=== PATIENT | female | born 1975 ===

== ENCOUNTER 2024-09-17 08:27 | Outpatient (REF) | payer SELFPAY ==
[2024-09-21 03:29] LABS: Quantiferon TB Gold Plus 1 NEGATIVE (NEGATIVE); TB Test (QFT) Mitogen -Nil >10.00 IU/mL; TB Test (QFT) Nil 0.03 IU/mL; TB Test (QFT) Plus TB1 -Nil 0.01 IU/mL
== END 2024-09-17 08:28 | disposition home or self-care (01) ==
LOC: HO.LAB 08:27
PROVIDERS: PCP Internal Medicine; Visit Provider Internal Medicine
DX: Z11.9 Encounter for screening for infectious and parasitic diseases, unspecified (principal)
CPT/HCPCS: 36415; 86480

== ENCOUNTER 2025-03-22 14:11 | Outpatient (REF) | payer MEDICAID, OTHER, SELFPAY ==
--- NOTE | 2025-03-22 | EMG_ITS ---
Chief complaint:?R20.0 Anesthesia of skin Reason for referral: Bilateral pain and numbness in hands and wrists Referred by:?Ana Evans Procedure done: Bilateral upper extremities Bilateral median and ulnar motor studies were performed, bilateral radial sensory and median and ulnar mixed sensory studies were performed an EMG needle examination was performed. Bilateral median motor distal latencies were moderately prolonged with normal amplitude and conduction velocities. Median mixed distal latencies were also moderately prolonged with moderately reduced conduction velocity especially on the right side which was 22 me to per sec. Ulnar studies did not reveal any significant abnormality. Needle examination of paraspinals was okay. Impression: [id number], right more than left, median neuropathy across carpal tunnel [place] [id number] 2 extremities MTDD
--- OUTSIDE RECORDS SUMMARY | 2025-03-22 17:50 | XMS_ITS | Clinical Summary ---
Author Organization [facility] Address [address] [place] [address] Phone Care Team Providers Care Accounting Software Specialist Name Role Phone Physician, No Pcp Primary Care Provider Unavaila ble Allergies Active Allergy Reactions Criticality Noted Date Comments Diclofenac 03/07/2025 Abd pain Medications doxycycline (VIBRAMYCIN) 100 mg capsule Take 1 capsule (100 mg total) by mouth 2 (two) times a day for 7 days. Take with at least 8 ounces (large glass) of water, do not lie down for 30 minutes after. Administer 2 hours before or after multivitamins, antacids, or other products containing polyvalent cations (i.e., calcium, iron, magnesium, selenium, zinc). 14 each 03/15/20 25 Encounters Date Type Department Care Team Description 03/07/2025 9:54 PM EDT - 03/08/2025 3:11 AM EDT Emergency [facility] Emergency [address] [place] [address] Bianka Milian MD Candidiasis (Primary Dx); Vaginal discharge; Dysuria; Interstitial cystitis Discharge Disposition: Home or Self Care from Last 3 Months Surgical History Surgery Date Site/Laterality Comments SECTION Social History Tobacco Use Types Packs/Day Years Used Date Smoking Tobacco: Never Smokeless Tobacco: Never Tobacco Cessation:Counseling Given: Not Answered Alcohol Use Standard Drinks/Week Comments Never 0 (1 standard drink = 0.6 oz pur e alcohol) Comments Unknown Sex and Gender Information Value Date Recorded Sex Assigned at Not on file Legal Sex Female 9:24 PM EDT Gender Identity Not on file Sexual Orientation Not on file Obstetrics History Last Filed Vital Signs Vital Sign Reading Time Taken Comments Blood Pressure 148/93 03/08/2025 1:13 AM EDT Pulse 84 03/08/2025 1:13 AM EDT Temperature 36.7 C (98.1 F) 03/08/2025 1:13 AM EDT Respiratory Rate 15 03/08/2025 1:13 AM EDT Oxygen Saturation 100% 03/08/2025 1:13 AM EDT Inhaled Oxygen Concentration - - Weight 52.6 kg (116 lb) 03/07/2025 9:29 PM EDT Height 167.6 cm (5' 6 ) 03/07/2025 9:29 PM EDT Body Mass Index 18.72 03/07/2025 9:29 PM EDT Plan of Treatment Health Maintenance Due Date Last Done Comments Breast Cancer Screening 1977 Colorectal Cancer Screening: Colonoscopy 1977 DTaP,Tdap,and Td Vaccines (1 - Tdap) 1996 Hepatitis B Vaccines (1 of 3 - 19+ 3-dose series) 1996 Cervical Cancer Screening: P ap Smear 1998 Depression Screening 05/27/2024 COVID-19 Vaccine ( - 2023-2 5 season) 2025 Influenza Vaccine (#1) 2025 HIV Screening 03/07/2025 Hepatitis C Screening 03/07/2025 Social Influencers of Health Screening 03/07/2025 RSV Immunization Adult Patie nts (1 - 1-dose 75+ series) 2052 HIB Vaccines Aged Out No longer eligi ble based on patient's age to complete this topic HPV Vaccines Aged Out No longer eligi ble based on patient's age to complete this topic Hepatitis A Vaccines Aged Out No long er eligible based on patient's age to complete this topic IPV Vaccines Aged Out No longer eligi ble based on patient's age to complete this topic MMR Vaccines Aged Out No longer eligi ble based on patient's age to complete this topic Meningococcal ACWY Vaccine Aged Out N o longer eligible based on patient's age to complete this topic Meningococcal B Vaccine Aged Out No l onger eligible based on patient's age to complete this topic Pneumococcal Vaccine: Pediat rics (0 to 5 Years) and At-Risk Patients (6 to 49 Years) Aged Out No longer eligible b ased on patient's age to complete this topic RSV Immunization Patients Un tiago 20 months Aged Out No longer eligible b ased on patient's age to complete this topic Varicella Vaccines Aged Out No longer eligible based on patient's age to complete this topic Procedures Procedure Name Priority Date/Time Associated Diagnosis Comments TRICHOMONAS VAGINALIS ANTIGEN STAT 03/08/2025 12:40 AM EDT WET PREP, GENITAL STAT 03/08/2025 12: 40 AM EDT CHLAMYDIA TRACHOMATIS AND NEISSERIA GONORRHOEAE PCR STAT 03/08/2025 12:40 AM EDT POC , URINE DIAGNOSTIC STAT 03/07/2025 10:18 PM EDT CBC WITH AUTO DIFFERENTIAL STAT 03/07/2025 10:03 PM EDT COMPREHENSIVE METABOLIC PANEL STAT 03/07/2025 10:03 PM EDT CBC AND DIFFERENTIAL STAT 03/07/2025 10:03 PM EDT TAYLOR URINE CULTURE TUBE STAT 03/07/2025 9:47 PM EDT URINALYSIS WITH REFLEX MICROSCOPIC AND CULTURE STAT 03/07/2025 9:47 PM EDT URINALYSIS WITH REFLEX MICROSCOPIC AND CULTURE STAT 03/07/2025 9:47 PM EDT from Last 3 Months Results * Trichomonas vaginalis antigen (03/08/2025 12:40 AM EDT) Trichomonas vaginalis Negative Negative 03/08/2025 2:17 AM EDT [facility] Swab Vaginal structure / Unknown Non-blood Collection / Unknown 03/08/2025 12:40 AM EDT 03/08/2025 1:31 AM EDT us Bianka Milian MD LAB MICROBIOLOGY - GENERAL ORDERABLES Final Result [facility] [address] [place] [address], [place] [phone] * Chlamydia trachomatis and Neisseria gonorrhoeae molecular study (03/08/2025 12:40 AM EDT) Neisseria gonorrhoeae PCR Negative Negative LAB MOLECULAR DIAGNOSTICS METHOD 03/08/2025 12:42 PM EDT [facility] Chlamydia trachomatis PCR Negative Negative LAB MOLECULAR DIAGNOSTICS METHOD 03/08/2025 12:42 PM EDT [facility] Swab Cervix uteri structure / Unknown Non-blood Collection / Unknown 03/08/2025 12:40 AM EDT 03/08/2025 1:31 AM EDT us Bianka Milian MD LAB MICROBIOLOGY - GENERAL ORDERABLES Final Result Performing Organization Address City/[facility]/ZIP Co de Phone Number [facility] [address] [place] [address], [place] [phone] * (ABNORMAL) Wet prep, genital (03/08/2025 12:40 AM EDT) Clue Cells, Wet Prep Negative Negative 03/08/2025 2:17 AM EDT [facility] Yeast, Wet Prep Positive(A) Negative 03/08/2025 2:17 AM EDT [facility] Trichomonas, Wet Prep Indeterminate Negative 03/08/2025 2:17 AM EDT [facility] Comment:Refer to Trichomonas antigen. Swab Vaginal structure / Unknown Non-blood Collection / Unknown 03/08/2025 12:40 AM EDT 03/08/2025 1:31 AM EDT us Bianka Milian MD LAB MICROBIOLOGY - GENERAL ORDERABLES Final Result [facility] [address] [place] [address], * POC , urine manually resulted (03/07/2025 10:18 PM EDT) HCG, Ur POC Negative Negative POC hCG Int QC Pass? Yes Yes Urine Urine specimen obtained by clean catch procedure / Unknown 03/07/2025 10:18 PM EDT Bianka Milian MD POINT OF CARE TEST ENTER/ED IT ORDERABLES Final Result * (ABNORMAL) CBC auto differential (03/07/2025 10:03 PM EDT) Pathologist [facility] WBC 9.1 4.8 - 10.8 K/mcL LAB HEMETOLOGY METHOD 03/07/2025 10:32 PM EDT [facility] RBC 4.50 3.80 - 4.80 M/mcL LAB HEMETOLOGY METHOD 03/07/2025 10:32 PM EDT [facility] Hemoglobin 12.5 11.5 - 16.0 g/dL LAB HEMETOLOGY METHOD 03/07/2025 10:32 PM EDT [facility] Hematocrit 38.9 35.0 - 47.0 % LAB HEMETOLOGY METHOD 03/07/2025 10:32 PM EDT [facility] MCV 85.7 79.0 - 98.0 FL LAB HEMETOLOGY METHOD 03/07/2025 10:32 PM EDT [facility] MCH 27.5 27.0 - 32.0 pcg LAB HEMETOLOGY METHOD 03/07/2025 10:32 PM EDT [facility] MCHC 32.1 32.0 - 37.0 g/dL LAB HEMETOLOGY METHOD 03/07/2025 10:32 PM EDT [facility] RDW 12.7 11.0 - 15.0 % LAB HEMETOLOGY METHOD 03/07/2025 10:32 PM EDT [facility] Platelets 310 130 - 400 K/mcL LAB HEMETOLOGY METHOD 03/07/2025 10:32 PM T [facility] MPV 9.7 7.0 - 11.0 FL LAB HEMETOLOGY METHOD 03/07/2025 10:32 PM EDT [facility] NRBC 0.0 <1.0 % LAB HEMETOLOGY METHOD 03/07/2025 10:32 PM EDT [facility] NRBC Absolute 0.00 <0.10 K/mcL LAB HEMETOLOGY METHOD 03/07/2025 10:[facility] Neutrophils Relative 50.3 % LAB HEMETOLOGY METHOD 03/07/2025 10:32 PM [facility] Lymphocytes Relative 33.4 % LAB HEMETOLOGY METHOD 03/07/2025 10:32 PM [facility] Monocytes Relative 10.7 % LAB HEMETOLOGY METHOD 03/07/2025 10:32 PM T [facility] Eosinophils Relative 4.6 % LAB HEMETOLOGY METHOD 03/07/2025 10:32 PM [facility] Basophils Relative 0.5 % LAB HEMETOLOGY METHOD 03/07/2025 10:32 PM [facility] Immature Granulocytes Relative 0.5 % LAB HEMETOLOGY METHOD 03/07/2025 10:32 PM T [facility] Neutrophils Absolute 4.57 1.50 - 7.00 K/mcL LAB HEMETOLOGY METHOD 03/07/2025 10:32 [facility] Lymphocytes Absolute 3.04 1.00 - 5.00 K/mcL LAB HEMETOLOGY METHOD 03/07/2025 10:32 [facility] Monocytes Absolute 0.97 0.20 - 1.00 K/mcL LAB HEMETOLOGY METHOD 03/07/2025 10:32 PM EDT [facility] Eosinophils Absolute 0.42 0.00 - 0.50 K/[facility] HEMETOLOGY METHOD 03/07/2025 10:32 PM EDT [facility] Basophils Absolute 0.05 0.00 - 0.20 K/[facility] HEMETOLOGY METHOD 03/07/2025 10:32 PM EDT [facility] Immature Granulocytes Absolute 0.05(H) 0.00 - 0.03 K/[facility] HEMETOLOGY METHOD 03/07/2025 10:32 PM EDT [facility] Blood Venous blood specimen / Unknown Venipuncture / Unknown 03/07/2025 10:03 PM EDT 03/07/2025 10:26 PM EDT Bianka Milian MD LAB BLOOD ORDERABLES Final Result [facility] [address] [place] [address], * (ABNORMAL) Comprehensive metabolic panel (03/07/2025 10:03 PM EDT) Sodium 136 133 - 145 mmol/L LAB CHEMISTRY METHOD 03/07/2025 10:59 PM [facility] Potassium 3.9 3.5 - 5.5 mmol/L LAB CHEMISTRY METHOD 03/07/2025 10:59 PM T [facility] Chloride 105 96 - 110 mmol/L LAB CHEMISTRY METHOD 03/07/2025 10:59 PM T [facility] CO2 25 21 - 32 mmol/L LAB CHEMISTRY METHOD 03/07/2025 10:59 PM [facility] Anion Gap 6 3 - 11 LAB CHEMISTRY METHOD 03/07/2025 10:59 PM EDT [facility] Glucose 155(H) 70 - 100 mg/dL LAB CHEMISTRY METHOD 03/07/2025 10:59 PM [facility] BUN 15 5 - 25 mg/dL LAB CHEMISTRY METHOD 03/07/2025 10:59 PM [facility] Creatinine 0.87 0.50 - 1.10 mg/dL LAB CHEMISTRY METHOD 03/07/2025 10:59 PM [facility] eGFR 83 >=60 mL/min/1. 73m2 LAB CHEMISTRY METHOD 03/07/2025 10:59 PM [facility] Comment:Calculation based on the Chronic Kidney Disease Epidemiology Collaboration (CKD-EPI) equation refit without adjustment for race. BUN/Creatinine Ratio 17.2 LAB CHEMISTRY METHOD 03/07/2025 10:59 PM [facility] Calcium 9.7 8.5 - 10.5 mg/dL LAB CHEMISTRY METHOD 03/07/2025 10:59 PM [facility] AST (SGOT) 26 10 - 42 unit/L LAB CHEMISTRY METHOD 03/07/2025 10:59 PM [facility] ALT (SGPT) 39 10 - 60 unit/L LAB CHEMISTRY METHOD 03/07/2025 10:59 PM [facility] Alkaline Phosphatase 87 42 - 121 unit/L LAB CHEMISTRY METHOD 03/07/2025 10:59 PM [facility] Total Protein 7.2 6.0 - 8.0 g/dL LAB CHEMISTRY METHOD 03/07/2025 10:59 PM [facility] Albumin 3.6 3.2 - 5.0 g/dL LAB CHEMISTRY METHOD 03/07/2025 10:59 PM [facility] Total Bilirubin 0.2 0.0 - 1.4 mg/dL LAB CHEMISTRY METHOD 03/07/2025 10:59 PM [facility] Blood Venous blood specimen / Unknown Venipuncture / Unknown 03/07/2025 10:03 PM EDT 03/07/2025 10:26 PM EDT us Bianka Milian MD LAB BLOOD ORDERABLES Final Result [facility] [address] [place] [address], [place] [phone] * Urinalysis with reflex microscopic and culture (03/07/2025 9:47 PM EDT) Specific [place] Urine 1.016 1.003 - 1.030 LAB URINALYSIS - AUTOMATED METHOD 03/07/2025 10:14 PM EDT [facility] pH, Urine 8.0 5.0 - 8.0 pH LAB URINALYSIS - AUTOMATED METHOD 03/07/2025 10:14 PM [facility] Leukocytes, Urine Negative Negative LAB URINALYSIS - AUTOMATED METHOD 03/07/2025 10:14 PM [facility] Nitrite, Urine Negative Negative LAB URINALYSIS - AUTOMATED METHOD 03/07/2025 10:14 PM [facility] Protein, Urine Trace <=Trace mg/dL LAB URINALYSIS - AUTOMATED METHOD 03/07/2025 10:14 PM [facility] Glucose, Urine Negative Negative mg/dL LAB URINALYSIS - AUTOMATED METHOD 03/07/2025 10:14 PM [facility] Ketones, Urine Negative Negative mg/dL LAB URINALYSIS - AUTOMATED METHOD 03/07/2025 10:14 PM [facility] Urobilinogen, Urine 0.2 0.2 - 1.0 mg/dL LAB URINALYSIS - AUTOMATED METHOD 03/07/2025 10:14 PM [facility] Bilirubin, Urine Negative Negative LAB URINALYSIS - AUTOMATED METHOD 03/07/2025 10:14 PM [facility] Blood, Urine Negative Negative LAB URINALYSIS - AUTOMATED METHOD 03/07/2025 10:14 PM EDT [facility] Urine Urine specimen obtained by clean catch procedure / Unknown Non-blood Collection / Unknown 03/07/2025 9:47 PM EDT 03/07/2025 10:02 PM EDT us Bianka Milian MD LAB URINE ORDERABLES Final Result Performing Organization Address [facility]/ZIP Co de Phone Number [facility] [address] [place] [address], [place] [phone] * Taylor urine culture tube (03/07/2025 9:47 PM EDT) Extra Tube Hold for add-ons. 03/08/2025 12:01 AM EDT [facility] Comment:Auto resulted. Urine Urine specimen obtained by clean catch procedure / Unknown Non-blood Collection / Unknown 03/07/2025 9:47 PM EDT 03/07/2025 10:02 PM EDT us Bianka Milian MD LAB URINE ORDERABLES Final Result Performing Organization Address [facility] Co de Phone Number [facility] [address] [place] [address], [place] [phone] from Last 3 Months Insurance MEDICAID - [place] Care Teams Accounting Software Specialist Relationship Specialty Start Date End Date Physician, No Pcp PCP - General 03/07/25
--- OUTSIDE RECORDS SUMMARY | 2025-03-22 17:50 | XMS_ITS | Clinical Summary ---
Author Organization [facility] Address [address] [place] [address] Care Team Providers Care Rail Layer Name Role Phone Unavailable Primary Care Provider Unavailabl e Allergies Active Allergy Reactions Criticality Noted Date Comments Diclofenac Abdominal Pain 02/11/2025 Medications magnesium oxide (Mag-Ox) 400 mg tablet Take 400 mg by mouth Once per day. Active omeprazole OTC (PriLOSEC OTC) 20 MG EC tablet Take 1 tablet (20 mg) by mouth before breakfast and before evening meal for 5 days. Do not crush, chew, or split. 10 tablet 5 Active gabapentin (Neurontin) 100 MG capsule Take 1 capsule (100 mg) by mouth at bedtime. 30 capsule 3 5 02/12/20 26 Active Diclofenac Sodium 1 % gel Apply 2 g topically if needed in the morning, at noon, in the evening, and at bedtime (pain). 150 g 3 5 Active acetaminophen (Tylenol 8 Hour) 650 MG ER tablet Take 1 tablet (650 mg) by mouth every 8 (eight) hours if needed for mild pain. Do not crush, chew, or split. 40 tablet 1 5 03/13/20 25 Active Problems Problem Noted Date Diagnosed Date Irritable bowel syndrome 02/11/2025 Encounters Date Type Department Care Team Description 02/11/2025 10:40 AM EDT Office Visit [facility] [address] [place] [id number] Ana Evasn DO Pain in both hands (Primary Dx); Pain in both wrists; Numbness of right hand; Palpitations 02/11/2025 Travel from Last 3 Months Social History Tobacco Use Types Packs/Day Years Used Date Smoking Tobacco: Never Assessed Comments Unknown Sex and Gender Information Value Date Recorded Sex Assigned at Female 02/11/2025 10:29 AM EDT Legal Sex Female 10:27 AM EDT Gender Identity Female 02/11/2025 10:29 AM EDT Sexual Orientation Choose not to disclose 2024 10:29 AM EDT Last Filed Vital Signs Vital Sign Reading Time Taken Comments Blood Pressure 129/88 02/11/2025 10:39 AM EDT Pulse 90 02/11/2025 10:39 AM EDT Temperature 36.5 C (97.7 F) 02/11/2025 10:39 AM EDT Respiratory Rate 17 02/11/2025 10:39 AM EDT Oxygen Saturation 96% 02/11/2025 10:39 AM EDT Inhaled Oxygen Concentration - - Weight 74.5 kg (164 lb 3.2 oz) 02/11/2025 10:39 AM EDT Height - - Body Mass Index - - Plan of Treatment Health Maintenance Due Date Last Done Comments CT Colonography 1977 Colonoscopy 1977 Colorectal Cancer Screening 1977 Depression Screening 1977 FIT DNA/Cologuard 1977 FIT 1977 FOBT 1977 HIV Screening 1977 SDOH Screening 1977 Sigmoidoscopy 1977 Disability Screening 1977 Alcohol/Substance Use Screening 1989 Tobacco Screening 1989 Family Planning (PISQ) 1992 Hepatitis C Screening 1995 DTaP/Tdap/Td Vaccines (1 - Tdap) 1996 Hepatitis B Vaccines (1 of 3 - 19+ 3-dose series) 1996 Pap Smear 1998 Cervical Cancer Screening 2007 HPV/Cotest 2007 Mammogram 2017 COVID-19 Vaccine ( - 2023-2 5 season) 2025 Influenza Vaccine (#1) 2025 Zoster Vaccines (1 of 2) 2027 RSV Patients and Pa tients Aged 60 years or older (1 - 1-dose 75+ series) 2052 HIB [...] patient's age to complete this topic Meningococcal Vaccine Aged Out No anastasia yazmin eligible based on patient's age to complete this topic Pneumococcal Vaccine: Pediat rics (0 to 5 Years) and At-Risk Patients (6 to 49) Years Aged Out No longer eligible b ased on patient's age to complete this topic RSV under 20 months Aged Out No longe r eligible based on patient's age to complete this topic Rotavirus Vaccines Aged Out No longer eligible based on patient's age to complete this topic Insurance [facility] FULL
--- OUTSIDE RECORDS SUMMARY | 2025-03-22 17:51 | XMS_ITS | Clinical Summary ---
Author Organization [facility] Address [address] [place] [address] Care Team Providers Care Equipment Scheduler Name Role Phone Unavailable Primary Care Provider Unavailabl e Source Comments PLEASE NOTE, if this patient is a minor, it may be UNLAWFUL to discuss sensitive information that is contained in these records (such as FAMILY PLANNING, MENTAL HEALTH or SUBSTANCE ABUSE) with the minor patient's parent or other person without the patient's specific authorization.[facility] Allergies No known active allergies Social History Tobacco Use Types Packs/Day Years Used Date Smoking Tobacco: Never Assessed Comments Unknown Sex and Gender Information Value Date Recorded Sex Assigned at Not on file Legal Sex Female 8:47 AM PDT Gender Identity Not on file Sexual Orientation Not on file Last Filed Vital Signs Vital Sign Reading Time Taken Comments Blood Pressure 123/84 10/05/2024 1:32 PM EDT Pulse 96 10/05/2024 1:32 PM EDT Temperature - - Respiratory Rate - - Oxygen Saturation - - Inhaled Oxygen Concentration - - Weight - - Height - - Body Mass Index - - Plan of Treatment Health Maintenance Due Date Last Done Comments Anxiety Screening 1977 Dental FMX/Pano 1977 Dental Prophy 1977 Diabetes Screening 1977 HPV Screening 1977 Hepatitis C Screening 1977 Lipid Screening 1977 Pap + HPV 1977 Tobacco Screening 1977 HIV Screening 1992 Relationship Safety Screening/Counseling 1992 Imm-DTaP/Tdap/Td (1 - Tdap) 1996 Imm-Hepatitis B (1 of 3 - 19+ 3-dose series) 7 Cervical Cancer Screening 1998 Pap Smear 1998 Breast Cancer Screening (Mammogram) 2017 CT Colonography 2022 Colonoscopy 2022 Colorectal Cancer Screening 2022 FIT/gFOBT 2022 Fecal DNA 2022 Flexible Sigmoidoscopy 2022 Alcohol and Drug Screen 05/27/2024 Depression Annual Screen 05/27/2024 [id number] ( season) 2025 Imm-Influenza (#1) 2025 Hypertension Screening (#1) 10/05/2025 Dental Examination 10/07/2025 10/05/2024 Dental Perio Charting 10/07/2025 10/05/2024 Cervical Ablation/Cold-Knife Conization Discontinued Cervical Cryotherapy Discontinued Colposcopy Discontinued Endometrial Biopsy Discontinued Excision/Leep Discontinued HPV Genotyping Discontinued Vaginal Pap Discontinued Vulvoscopy Discontinued Procedures Procedure Name Priority Date/Time Associated Diagnosis Comments COMP ORAL EVALUATION - NEW/ESTABLISHED PATIENT Routine 10/05/2024 1:40 PM EDT Caries from Last 3 Months or Most Recently Relevant to Health Maintenance Insurance [facility] Member Subscriber [facility] Name:Fam Hua Relation to Subscriber:Self Name:Fam Hua Payer ID:[id number] Group ID:Not on file Type:Other Address: [address] [place] [address] [place] MEDICA[place] Member Subscriber Plan / [facility]27/2024-Present) Name:Fam Hua Relation to Subscriber:Self Name:Fam Hua Payer ID:[id number] Group ID:Not on file Type:Medicaid Address: [facility] [id number] [place] [address] [place] DENTAL
== END 2025-03-22 14:12 | disposition home or self-care (01) ==
LOC: HO.NEURO 14:11
PROVIDERS: Visit Provider Family Medicine
DX: M79.641 Pain in right hand (principal); M79.642 Pain in left hand; M25.531 Pain in right wrist; M25.532 Pain in left wrist; R20.0 Anesthesia of skin
CPT/HCPCS: 95886; 95913

== ENCOUNTER → 2025-03-22 14:15 | Outpatient (BNV) | payer MEDICAID, SELFPAY | PROVIDERS: Visit Provider Psychiatry & Neurology Neurology | DX: G56.01 Carpal tunnel syndrome, right upper limb (principal) | CPT/HCPCS: 95886; 95913 ==

== ENCOUNTER → 2025-04-21 14:08 | Outpatient (REF) | payer MEDICAID, OTHER, SELFPAY ==
--- NOTE | 2025-04-21 14:11 | CA_ITS ---
Transthoracic Echocardiogram Patient (Last, First, Middle): Fam Hua, Gender: Female Date of : 1975 Age: 49 Procedure Date: 04/21/2025 Procedure Type: Transthoracic Echocardiogram Location: OP Height: 167.64 cm Weight: 68.04 kg BSA: 1.77 m2 Heart Rate: bpm BP: 126 / 80 mmHg Security Compliance Engineer: MARLO Referring MD: Ana Evans DO Symptoms: INTERMITTENT PALPITATIONS Study Quality: Fair ECG Rhythm: Sinus Conclusions: - The left ventricular systolic function is normal. The calculated ejection fraction is 63% by biplane method. - No obvious valvular pathology seen on this study. Findings Left Ventricle Normal left ventricular cavity size. The left ventricular systolic function is normal. The calculated ejection fraction is 63% by biplane method. There is no evidence of regional wall motion abnormalities. Diastolic function is normal for age. There is mild septal and mild basal asymmetric hypertrophy. Right Ventricle Normal right ventricular cavity size and systolic function. Atria Both atria are normal in size. Aortic Valve The aortic valve was not well visualized. There is no aortic valve stenosis. There is no aortic valve regurgitation. Mitral Valve The mitral valve appears normal. There is no mitral valve regurgitation. There is no mitral valve stenosis. Pulmonic Valve The pulmonic valve is likely normal. Tricuspid Valve There is trace tricuspid valve regurgitation. There is no evidence of pulmonary hypertension. Great Vessels The asc aorta and aortic arch are normal in size. Venous The inferior vena cava is normal in size and collapses greater than 50% with inspiration. Pericardium/Pleural There is no evidence of pericardial effusion. Prior Study Comparison No prior study available for comparison. Recommendations, Care & Conclusions No obvious valvular pathology seen on this study. Measurements 2D Linear Measurements IVSd: 0.74 0.6-0.9/0.6-1.0 cm LVIDd: 4.49 3.9-5.3/4.2-5.9 cm LVIDd Index: 2.54 2.4-3.2/2.2-3.1 cm/m2 LVIDs: 2.48 2.0-3.6 cm LVPWd: 0.62 0.7-1.1 cm LA Diam: 3.00 2.7-3.8/3.0-4.0 cm LAIDs Index: 1.69 1.5-2.3 cm/m2 LV Mass: 113.96 67-162/88-224 g LV Mass Index: 64.39 43-95/49-115 g/m2 LVOT Diam: 2.20 3.0+(-)1.3 cm 2D Systolic Function EF 4C: 64.70 >55% EF 2C: 62.00 >55% EF BiP: 62.50 >55% Mitral Valve MV Pk E: 0.90 MV PK A: 0.77 MV Decel Time: 168.00 E/A: 1.20 E'Lateral: 11.20 E'Medial: 6.74 E/E' Med: 13.40 E/E' Lat: 8.00 PHT: 49.00 MVA PHT: 4.49 Decel Dent: 5.34 Aortic Valve AoV Pk Syd: 1.53 AoV Mn Syd: 1.03 AoV VTI: 0.31 AoV Pk Grad: 9.00 Aov Mn Grad: 5.00 JAMES Cont.VTI: 2.57 LVOT LVOT Pk Syd: 1.18 LVOT Mn Syd: 0.84 LVOT VTI: 0.21 LVOT Pk Grad: 6.00 LVOT Mn Grad: 3.00 LVOT Diam: 2.20 LVOT Area: 3.80 Diastolic Function MV Pk E: 0.90 MV Pk A: 0.77 E/A: 1.20 E'Medial: 6.74 E/E' Med: 13.40 E' Laterial: 11.20 E/E' Lat: 8.00 Right Ventricle TAPSE (mm): 22.60 TVS' Syd: 12.80 Tricuspid Valve RA Press: 3.00 Great Vessels Aorta Sinus of Valsalva: 3.23 2.0-3.[address] Ridge: 2.68 1.7-3.4 cm Ao Asc: 2.90 2.1-3.4 cm Ao Arch: 2.50 Pulmonary Veins Pulm Vein S/D 1.20 Updated in Other Vendor System with Status of Final Christofer Arellano MD electronically signed on 04/21/2025 3:30:02 PM with status of Final
--- OUTSIDE RECORDS SUMMARY | 2025-04-21 17:08 | XMS_ITS | Clinical Summary ---
Author Organization [facility] Address [address] [place] [address] Care Team Providers Care General Utility Worker Name Role Phone Unavailable Primary Care Provider [...] bedtime (pain). 150 g 3 5 Active Active Problems Problem Noted Date Diagnosed Date Irritable bowel syndrome 02/11/2025 Encounters Date Type Department Care Team Description 04/06/2025 Orders Only [facility] [address] [place] [phone] Ana Evans DO Bilateral carpal tunnel syndrome (Primary Dx) 04/04/2025 Telephone [facility] [address] [place] [phone] Ana Eavns DO Results 02/11/2025 10:40 AM EDT Office Visit [facility] [address] [place] [phone] Ana Evans DO Pain in both hands (Primary Dx); [...] 2007 HPV/Cotest 2007 Mammogram 2017 COVID-19 Vaccine (1 - 2024-2 6 season) 2025 Influenza Vaccine (#1) 2025 Zoster [...] Procedure Name Priority Date/Time Associated Diagnosis Comments NERVE CONDUCTION TEST Routine 03/22/2025 Pain in both hands Pain in both wrists Numbness of right hand from Last 3 Months Results * Nerve conduction test (03/22/2025) Ana Evans DO NEUROLOGY ORDERABLES Final R esult from Last 3 Months Insurance [employer] HSN FULL
== END ==
LOC: HO.CARD 14:08
PROVIDERS: PCP Family Medicine; Visit Provider Family Medicine
DX: R00.2 Palpitations (principal)
CPT/HCPCS: 93225; 93306

== ENCOUNTER → 2025-04-21 14:11 | Outpatient (BNV) | payer MEDICAID, SELFPAY | PROVIDERS: PCP Family Medicine; Visit Provider Internal Medicine | DX: R00.2 Palpitations (principal) | CPT/HCPCS: 93306 ==